=== PATIENT | male | born 2005 | race Caucasian/White ===

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

== ENCOUNTER → 2023-08-01 | Emergency (ER) | payer OTHER, SELFPAY ==
[~2023-08-01] MED LIST: AMOX/K CLAV 875 MG TAB ONE; dexAMETHasone 10 MG/ML VIAL ONE
--- OUTSIDE RECORDS SUMMARY | 2023-08-01 02:30 | XMS REPORT | Continuity of Care Document ---
Author Name Unknown Address [address] [place] [address] [facility] thconnect Address [address] [place] [address] Care Team Providers Care Tunnel Mucker Name Role Phone Jen Betancourt Attending Clinician [phone]- [phone] Thierno JOHNSON, Nuris Baca Attending Clinician [phone] Doctor Unassigned, [place] Attending Clinician U navailable Payers Payer Name Policy Type Policy Number Effective Date Expirati on Date Source Problems Condition Name Condition Details Condition Category Status Onset Date Resolution Date Last Treatment Date Treating Clinician Comments Source Attention deficit hyperactiv ity disorder (ADHD), combined type Attention deficit hyperactiv ity disorder (ADHD), combined type Disease Active 08-30 00:00: 00 [facility] Elevated blood pressure reading Elevated blood pressure reading Disease Active 08-30 00:00: 00 [facility] Asthma Asthma Disease Active 03-19 00:00: 00 Overview: ICD10 Diagnosis Term [employer]ware [employer] [facility] Other and unspecifie d diseases of upper respirator y tract Other and unspecifie d diseases of upper respirator y tract Disease Active 03-19 00:00: 00 Overview: URI [facility] Otitis media Otitis media Disease Active 03-19 00:00: 00 Overview: [id number] Diagnosis Term [employer] [facility] Conjunctiv itis Conjunctiv itis Disease Active 03-19 00:00: 00 Overview: ICD10 Diagnosis Term [employer] [facility] Bronchitis Bronchitis Disease Active 03-19 00:00: 00 Overview: ICD10 Diagnosis Term [employer] [facility] Influenza with respirator y manifestat ion other than pneumonia Influenza with respirator y manifestat ion other than pneumonia Disease Active 03-19 00:00: 00 Overview: ICD10 Diagnosis Term [employer] Utility [facility] Routine or child health check Routine or child health check Disease Active 02-22 00:00: 00 Overview: 2 year, 3 year [facility] Social History Social Habit Start Date Stop Date Quantity Comments Source Sex Assigned At [facility] Smoking Status Start Date Stop Date Source Never smoker [facility] Medications Ordered Medication Name Filled Medication Name Start Date Stop Date Current Medication? Ordering Clinician Indication Dosage Frequency Signature (SIG) Comments Components Source methylpheni date HCl (CONCERTA) 36 mg 24 hr tablet 10-12 00:00: 00 Yes [id number] 36mg Take 1 tablet by mouth every morning. [facility] methylpheni date HCl (CONCERTA) 36 mg 24 hr tablet 08-30 00:00: 00 Yes [id number] 36mg Take 1 tablet by mouth every morning. [facility] methylpheni date HCl (CONCERTA) 36 mg 24 hr tablet 08-30 00:00: 00 Yes [id number] 36mg Take 1 tablet by mouth every morning. [facility] methylpheni date HCl (CONCERTA) 36 mg 24 hr tablet 08-30 00:00: 00 Yes [id number] 36mg Take 1 tablet by mouth every morning. [facility] methylpheni date HCl (CONCERTA) 36 mg 24 hr tablet 08-30 00:00: 00 10-12 00:00 :00 No [id number] 36mg Take 1 tablet by mouth every morning. [facility] albuterol (PROAIR HFA) 90 mcg/actuati on inhaler 2018-08 00:00: 00 Yes [id number] Take 2-3 puffs q 4 hours prn wheezing [facility] albuterol (PROAIR HFA) 90 mcg/actuati on inhaler 2018-08 00:00: 00 Yes [id number] Take 2-3 puffs q 4 hours prn wheezing [facility] albuterol (PROAIR HFA) 90 mcg/actuati on inhaler 2018-08 00:00: 00 Yes [id number] Take 2-3 puffs q 4 hours prn wheezing [facility] albuterol (PROAIR HFA) 90 mcg/actuati on inhaler 2018-08 00:00: 00 Yes [id number] Take 2-3 puffs q 4 hours prn wheezing [facility] albuterol (PROAIR HFA) 90 mcg/actuati on inhaler 2018-08 00:00: 00 Yes [id number] Take 2-3 puffs q 4 hours prn wheezing [facility] methylpheni date HCl (CONCERTA) 36 mg 24 hr tablet 2018-0824 00:00: 00 Yes [id number] 36mg Take 1 tablet by mouth every morning. [facility] methylpheni date HCl (CONCERTA) 36 mg 24 hr tablet 2018-08 024 00:00: 00 08-30 00:00 :00 No [id number] 36mg Take 1 tablet by mouth every morning. [facility] methylpheni date HCl (CONCERTA) 36 mg 24 hr tablet 2018-08 024 00:00: 00 08-30 00:00 :00 No [id number] 36mg Take 1 tablet by mouth every morning. [facility] CONCERTA 36 mg 24 hr tablet 23 00:00: 00 Yes [id number] 36mg Take 1 tablet by mouth every morning. [facility] CONCERTA 36 mg 24 hr tablet 23 00:00: 00 08-30 00:00 :00 No [id number] 36mg Take 1 tablet by mouth every morning. [facility] CONCERTA 36 mg 24 hr tablet 523 00:00: 00 08-30 00:00 :00 No [id number] 36mg Take 1 tablet by mouth every morning. [facility] Vital Signs Vital Name Observation Time Observation Value Comments S girma Systolic blood pressure 2019-08-30 14:08:00 133 mm[Hg] [facility] Diastolic blood pressure 2019-08-30 14:08:00 77 mm[Hg] [facility] Heart rate 2019-08-30 14:08:00 76 /min [facility] Body temperature 2019-08-30 14:08:00 36.11 Jennifer [facility] Respiratory rate 2019-08-30 14:08:00 19 /min [facility] Body height 2019-08-30 14:08:00 176.1 cm [facility] Body weight 2019-08-30 14:08:00 78.699 kg [facility] BMI 2019-08-30 14:08:00 25.36 kg/m2 [facility] Oxygen saturation in Arterial blood by Pulse oximetry 2019-08-30 14:08:00 100 /min [facility] Systolic blood pressure 2019-08-30 14:08:00 133 mm[Hg] [facility] Diastolic blood pressure 2019-08-30 14:08:00 77 mm[Hg] [facility] Heart rate 2019-08-30 14:08:00 76 /min [facility] Body temperature 2019-08-30 14:08:00 36.11 Jennifer [facility] Respiratory rate 2019-08-30 14:08:00 19 /min [facility] Body height 2019-08-30 14:08:00 176.1 cm [facility] Body weight 2019-08-30 14:08:00 78.699 kg [facility] BMI 2019-08-30 14:08:00 25.36 kg/m2 [facility] Oxygen saturation in Arterial blood by Pulse oximetry 2019-08-30 14:08:00 100 /min [facility] Procedures Procedure Date / Time Performed Performing Clinicia n Source CONSENT/REFUSAL FOR DIAGNOSIS AND TREATMENT 2019-08-30 14:01:14 Doctor Unassigned, [place] [facility] Encounters Start Date/Time End Date/Time Encounter Type Admission Type Attending Clinicians Care Facility Care Department Encounter ID Source 2019-10-13 00:00:00 2019-10-13 00:00:[address] [facility] [id number] 2019-10-13 00:00:00 2019-10-13 00:00:[address] [facility] [id number] [facility] 2019-08-30 08:02:44 2019-08-30 08:26:18 Office [address] Pa [facility] [id number] 2019-08-30 08:02:44 2019-08-30 08:26:18 Office Visit Nuris Pa [facility] [id number] [facility] 2019-08-30 00:00:00 2019-08-30 00:00:00 Orders Only Doctor Unassigned, [place] [facility] [id number] [facility] 2019-08-30 00:00:00 2019-08-30 00:00:00 Letter (Out) Nuris Pa [facility] [id number] [facility]
--- NOTE | 2023-08-01 04:18 | ER ---
Nurse's Notes [facility] Name: Anthony Jasso Age: 17 yrs Sex: Male : 2005 Arrival Date: 08/01/2023 Time: 02:27 Bed 10 Private MD: Diagnosis: Streptococcal pharyngitis Presentation: 08/01 02:33 Chief complaint: Patient states: sore throat pain of 6 with swelling,onset 3 days. pf1 Coronavirus screen: Vaccine status: Patient reports being unvaccinated. Client denies travel out of the [place] in the last 14 days. Client presents with at least one sign or symptom that may indicate coronavirus-19. Ebola Screen: Patient negative for fever greater than or equal to 101.5 degrees Fahrenheit, and additional compatible Ebola Virus Disease symptoms. Initial Sepsis Screen: Does the patient meet any 2 criteria? HR > 90 bpm. No. Patient's initial sepsis screen is negative. Does the patient have a suspected source of infection? No. Patient's initial sepsis screen is negative. Risk Assessment: Do you want to hurt yourself or someone else? Patient reports no desire to harm self or others. 02:33 Method Of Arrival: Ambulatory pf1 02:33 Acuity: JUAN 4 pf1 Historical: - Allergies: 02:39 ants; pf1 - PMHx: 02:39 ADD/ADHD; Asthma; suicidal ideation; Depressive disorder; pf1 - PSHx: 02:39 left hand 5th digit; pf1 - Immunization history:: Adult Immunizations up to date, Client reports having NOT received the Covid vaccine. Last tetanus immunization: < 10 years ago Flu vaccine is not up to date. - Social history:: Smoking status: Patient denies any tobacco usage or history of. Patient uses alcohol, occasionally. Patient/guardian denies using street drugs. Screenin:45 [facility] ED Fall Risk Assessment (Adult) History of falling in the last 3 months, pf1 including since admission No falls in past 3 months (0 pts) Confusion or Disorientation No (0 pts) Intoxicated or Sedated No (0 pts) Impaired Gait No (0 pts) Mobility Assist Device Used No (0 pt) Altered Elimination No (0 pt) Score/Fall Risk Level 0 - 2 = Low Risk Oriented to surroundings, Maintained a safe environment, Educated pt \T\ family on fall prevention, incl call for assistance when getting out of bed, Assessed \T\ reinforced patient's understanding of fall precautions, Provided non-skid footwear, Hourly rounding (assess needs \T\ fall precautionary measures) done, Used ambulatory aids as needed (educated on \T\ assisted with), Used gait belt as appropriate. Abuse screen: Denies threats or abuse. Nutritional screening: No deficits noted. Tuberculosis screening: No symptoms or risk factors identified. Assessment: 02:45 General: Appears in no apparent distress. uncomfortable, well groomed, well developed, pf1 Behavior is calm, cooperative, appropriate for age, quiet. 02:45 Pain: Complains of pain in throat. Neuro: No deficits noted. Level of Consciousness is pf1 awake, alert, obeys commands, Oriented to person, place, time, situation. Cardiovascular: No deficits noted. Capillary refill < 3 seconds Patient's skin is warm and dry. Respiratory: Airway is patent Respiratory effort is even, unlabored, Respiratory pattern is regular, symmetrical, Breath sounds are clear bilaterally. GI: No deficits noted. No signs and/or symptoms were reported involving the gastrointestinal system. : No deficits noted. No signs and/or symptoms were reported regarding the genitourinary system. EENT: Throat is reddened bilaterally Reports sore throat with swelling . Derm: No deficits noted. No signs and/or symptoms reported regarding the dermatologic system. 03:45 Reassessment: Patient appears in no apparent distress at this time. Patient and/or pf1 family updated on plan of care and expected duration. Pain level reassessed. Patient is alert/active/playful, equal unlabored respirations, skin warm/dry/pink. Patient states symptoms have improved. Vital Signs: 02:33 BP 135 / 84; Pulse 107; Resp 18; Temp 98.3; Pulse Ox 99% on R/A; Weight 108.86 kg; pf1 Height 6 ft. 1 in. ; Pain 6/10; 04:00 BP 118 / 79; Pulse 95; Resp 16; Pulse Ox 100% on R/A; pf1 02:33 Body Mass Index 31.66 (108.86 kg, 185.42 cm) - Percentile 96.7 % pf1 02:33 Pain Scale: Adult pf1 ED Course: 02:29 Patient arrived in ED. ag3 02:37 Page, Adebayo, PA is PHCP. cp 02:37 Adebayo Hamilton MD is Attending Physician. cp 02:39 Triage completed. pf1 02:45 Patient has correct armband on for positive identification. Bed in low position. Call pf1 light in reach. Adult w/ patient. 02:45 Arm band placed on right wrist. pf1 03:12 Strep Sent. pf1 04:36 Patient did not have IV access during this emergency room visit. pf1 04:36 No provider procedures requiring assistance completed. pf1 04:36 Provided Education on: prescription. pf1 Administered Medications: 03:12 Drug: Amoxicillin-Clavulanate PO 875 mg PO once Route: PO; pf1 04:10 Follow up: Response: No adverse reaction pf1 03:12 Drug: Dexamethasone PO 10 mg PO once Route: PO; pf1 04:30 Follow up: Response: No adverse reaction; Marked relief of symptoms pf1 Medication: 03:00 VIS not applicable for this client. pf1 Outcome: 04:17 Discharge ordered by MD. cp 04:36 Patient left the ED. pf1 04:36 Discharged to home ambulatory, with family, pf1 04:36 Condition: improved pf1 04:36 Discharge instructions given to patient, family, Instructed on discharge instructions, follow up and referral plans. Demonstrated understanding of instructions, follow-up care, medications, Prescriptions given X 2, Signatures: Adebayo Taylor PA PA Chasity Morales ag3 Anu Gibbs, RN RN pf1
--- NOTE | 2023-08-01 04:18 | EDPHYS ---
Physician Documentation [facility] Name: Anthony Jasso Age: 17 yrs Sex: Male : 2005 Arrival Date: 08/01/2023 Time: 02:27 Bed 10 Private MD: ED Physician Adebayo Hamilton HPI: 08/01 02:55 This 17 yrs old Male presents to ER via Ambulatory with complaints of Sore Throat, cp Breathing Difficulty. 02:55 The patient presents with sore throat. The patient describes throat pain as constant. cp 02:55 Onset: The symptoms/episode began/occurred 3 day(s) ago. cp 02:55 Severity of symptoms: in the emergency department the symptoms are unchanged, despite cp home interventions. Associated signs and symptoms: Pertinent positives: swelling of uvula, Pertinent negatives cough, dysphagia, fever, flu-like symptoms, vomiting. Historical: - Allergies: 02:39 ants; pf1 - PMHx: 02:39 ADD/ADHD; Asthma; suicidal ideation; Depressive disorder; pf1 - PSHx: 02:39 left hand 5th digit; pf1 - Immunization history:: Adult Immunizations up to date, Client reports having NOT received the Covid vaccine. Last tetanus immunization: < 10 years ago Flu vaccine is not up to date. - Social history:: Smoking status: Patient denies any tobacco usage or history of. Patient uses alcohol, occasionally. Patient/guardian denies using street drugs. ROS: 03:00 Constitutional: Negative for fever, poor PO intake, cp 03:00 Eyes: Negative for injury, pain, redness, and discharge, cp 03:00 ENT: Positive for sore throat, Negative for difficulty swallowing, difficulty handling secretions, 03:00 Neck: Negative for pain with movement, pain at rest, stiffness, 03:00 Respiratory: Positive for shortness of breath, Negative for cough, wheezing, 03:00 Abdomen/GI: Negative for abdominal pain, vomiting, diarrhea, constipation, 03:00 Neuro: Negative for altered mental status, headache, 03:00 All other systems are negative, Exam: 03:00 Constitutional: The patient appears in no acute distress, alert, awake, non-toxic, well cp developed, well nourished, 03:00 Head/Face: Normocephalic, atraumatic. cp 03:00 Eyes: Periorbital structures: appear normal, Conjunctiva: normal, no exudate, no injection, Lids and lashes: appear normal, bilaterally, 03:00 ENT: External ear(s): are unremarkable, Ear canal(s): are normal, clear, TM's: dullness, bilaterally, Nose: is normal, Mouth: Lips: moist, Oral mucosa: moist, Posterior pharynx: Airway: no evidence of obstruction, patent, Tonsils: with erythema, no exudate, Uvula: midline, edematous, erythema, erythema, that is marked, exudate, is not appreciated, 03:00 Neck: ROM/movement: is normal, is supple, without pain, no range of motions limitations, no meningismus, no nuchal rigidity, 03:00 Chest/axilla: Inspection: normal, 03:00 Cardiovascular: Rate: tachycardic, 03:00 Respiratory: the patient does not display signs of respiratory distress, Respirations: normal, no use of accessory muscles, no retractions, labored breathing, is not present, Breath sounds: are clear throughout, no decreased breath sounds, no stridor, no wheezing, 03:00 Abdomen/GI: Exam negative for discomfort, distension, guarding, Inspection: abdomen appears normal, 03:00 Skin: no rash present. Vital Signs: 02:33 BP 135 / 84; Pulse 107; Resp 18; Temp 98.3; Pulse Ox 99% on R/A; Weight 108.86 kg; pf1 Height 6 ft. 1 in. ; Pain 6/10; 04:00 BP 118 / 79; Pulse 95; Resp 16; Pulse Ox 100% on R/A; pf1 02:33 Body Mass Index 31.66 (108.86 kg, 185.42 cm) - Percentile 96.7 % pf1 02:33 Pain Scale: Adult pf1 MDM: 02:48 Patient medically screened. fredy 04:16 Data reviewed: vital signs, nurses notes, lab test result(s). cp 04:16 Differential diagnosis: group A strep tonsillitis, yong's angina, pharyngitis, cp retropharyngeal abcess tonsillitis, uvulitis. I considered the following discharge prescriptions or medication management in the emergency department Medications were administered in the Emergency Department. See MAR. Counseling: I had a detailed discussion with the patient and/or guardian regarding the historical points, exam findings, and any diagnostic results supporting the discharge/admit diagnosis, lab results, to return to the emergency department if symptoms worsen or persist or if there are any questions or concerns that arise at home. Response to treatment: the patient's symptoms have mildly improved after treatment, and as a result, I will discharge patient. ED course: VSS. Patient appears non-toxic and no signs of respiratory distress. Patient tolerating po meds. Will discharge to home for continued monitoring. 08/01 02:49 Order name: Strep; Complete Time: 04:23 cp 08/01 04:23 Interpretation: Reviewed. cp Administered Medications: 03:12 Drug: Amoxicillin-Clavulanate PO 875 mg PO once Route: PO; pf1 04:10 Follow up: Response: No adverse reaction pf1 03:12 Drug: Dexamethasone PO 10 mg PO once Route: PO; pf1 04:30 Follow up: Response: No adverse reaction; Marked relief of symptoms pf1 Disposition Summary: 08/01/23 04:17 Discharge Ordered Notes: Location: Home cp Problem: new cp Symptoms: have improved cp Condition: Stable cp Diagnosis - Streptococcal pharyngitis cp Followup: cp - With: Private Physician - When: 2 - 3 days - Reason: Worsening of condition Discharge Instructions: - Discharge Summary Sheet cp - Strep Throat, Adult cp Forms: - Medication Reconciliation Form cp - Thank You Letter cp - Antibiotic Education cp - Prescription Opioid Use cp - Patient Portal Instructions cp - Leadership Thank You Letter cp Prescriptions: - Augmentin 875-125 mg Oral Tablet - take 1 tablet ORAL route every 12 hours for 10 days; 20 tablet; Refills: 0, cp Product Selection Permitted - Ibuprofen 800 mg Oral Tablet - take 1 tablet ORAL route every 8 hours As needed take with food; 30 tablet; cp Refills: 0, Product Selection Permitted Signatures: Dispatcher [employer] Adebayo Strange MD MD cha Page, Corey, PA PA cp Finley, Pamala RN RN pf1
[2023-08-01 06:21] VITALS: BP 135/84; TEMP 98.3; O2SAT 99
== END ==
LOC: ER 02:27
DX: J02.0 Streptococcal pharyngitis (principal); Z91.038 Other insect allergy status
CPT/HCPCS: 87081; 99283; J1100